=== PATIENT | male | born 1955 | race Caucasian/White ===

== ENCOUNTER → 2022-01-12 | Outpatient (CLI) | payer BC, SELFPAY ==
[2022-01-12 16:53] LABS: Absolute Lymphocyte Count 2.46 X10^3/uL (0.83-4.51); Absolute Neutrophil Count 3.2 X10^3/uL (2.0-7.7); Basophil# 0.07 X10^3/uL; Basophil% 1.1 % (0-1); Eosinophil# 0.17 X10^3/uL; Eosinophils% 2.6 % (0-5); Hemoglobin 14.6 g/dL (13.0-16.5); Lymphocyte # 2.46 X10^3/ul (0.83-4.51); Lymphocyte % 37.4 % (19-41); Mean Corp Hgb Conc 33.2 g/dL (32-36); Mean Corpuscular Hgb 30.8 pg (27.0-32.0); Mean Corpuscular Volume 92.8 fL (80-94); Mean Platelet Vol. 9.1 fl (6.2-12.0); Monocyte# 0.61 X10^3/uL; Monocyte% 9.3 % (0-10); NRBC Flagged by Analyzer 0 % (0-5); Neutrophil # 3.24 X10^3/uL (2.7-7.7); Neutrophil % 49.3 % (47-70); Platelet Count 296 K/mm3 (150-450); RBC Distribution Width CV 12.9 % (11.6-14.6); RBC Distribution Width SD 44.2 fl (35.1-43.9); Red Blood Count 4.74 M/mm3 (4.6-6.2); White Blood Count 6.6 K/mm3 (4.4-11.0)
[2022-01-12 17:39] LABS: Vitamin D,25 Hydroxy 43.2 ng/mL
[2022-01-12 17:49] LABS: ALB/GLOB Ratio 1.2 RATIO (0.9-2.4); AST(SGOT) 16 U/L (15-37); Alanine Aminotransfer ALT/SGPT 25 U/L (16-61); Albumin, Serum 4.1 g/dL (3.2-5.0); Alkaline Phosphatase 67 U/L (45-117); Anion Gap 4 (5-15); BUN 19 mg/dL (7-18); BUN/Creat Ratio 18.8 RATIO (10-20); Calcium,Total 8.7 mg/dL (8.5-10.1); Chloride 110 mmol/L (98-107); Cholesterol 185 mg/dL (200); Creatinine, Serum 1.01 mg/dL (0.70-1.30); EST Glomerular Filtration Rate 79 mL/min (>60); Est Glom Filt Rate - Afr Amer 95 mL/min (>60); Globulin 3.4 g/dL (2.2-4.2); Glucose 94 mg/dL (74-106); High Density Lipoprotein 67 mg/dL; PSA,Total - Annual Screen 1.83 ng/mL (0.00-4.00); Potassium 4.1 mmol/L (3.5-5.1); Protein, Total 7.5 g/dL (6.4-8.2); Sodium Level 140 mmol/L (136-145); Thyroid Stim Hormone (TSH) 8.16 uIU/mL (0.358-3.74); Triglycerides 49 mg/dL; Very Low Density Lipoprotein 10 mg/dL (5-40)
[2022-01-13 08:47] LABS: Free T3 2.7 pg/mL (2.18-3.98); T4 Free Direct 0.83 ng/dL (0.76-1.46)
== END | disposition home or self-care (01) ==
LOC: LAB 16:31
PROVIDERS: PCP Internal Medicine; Visit Provider Internal Medicine
DX: Z00.00 Encounter for general adult medical examination without abnormal findings (principal); Z13.220 Encounter for screening for lipoid disorders; Z12.5 Encounter for screening for malignant neoplasm of prostate; R79.89 Other specified abnormal findings of blood chemistry
CPT/HCPCS: 36415; 80053; 80061; 82306; 84153; 84439; 84443; 84481; 85025; G0103

== ENCOUNTER 2022-01-25 09:22 | Day surgery (SDC) | payer BC, SELFPAY ==
[2022-01-25 09:49] VITALS: BP 124/82; PULSE 68; RESP 16; TEMP 36.6; O2SAT 96; BMI 28.3
[2022-01-25] MEDS: Lactated Ringers 1,000 ML 15 ML IV (09:55)
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
--- NOTE | 2022-01-25 10:15 | COLBX_PTH ---
PATIENT: JACKSON BARTLETT LOC: [facility] U#:[id number] AGE/SX: 66/M ROOM: RE01/25/[address]: Dr. Prince Malik MD : 1955 BED: DIS: 01/25/2022 SPEC #: [id number] RECD: 01/25/22 11:30 STATUS: MEENU REYNAGA #: [id number] DREW: 01/25/22 10:[address]: Prince Malik DEPT: SURGICAL PATHOLOGY RECD BY: Sara Rangel ENTERED: 01/25/22 12:45 SP TYPE: COLON BX OTHR DR: Dr. Rhoda Marcano MD Tissues: A - Cecum, NOS B - COLON BIOPSY Procedures: Surgery Specimen Level IV HEADER OPERATION: Colonoscopy (MAC), biopsy PRE-OP DIAGNOSIS: Change in bowel movement, elevated TSH TISSUE SUBMITTED: A ? Cecal polyp biopsy, B ? Appendiceal orifice biopsy MICROSCOPIC DIAGNOSIS A. Cecal polyp, biopsy: Tubular adenoma. B. Appendiceal orifice, biopsy: No pathologic change. See comment. AM:jose 01/26/2022 COMMENT B. Prominent benign appearing lymphoid aggregates are present. MICROSCOPIC DESCRIPTION Slides are reviewed. GROSS DESCRIPTION A - Received in fixative is one container labeled with the patient's name and designated cecal polyp. The specimen consists of two irregular fragments of light lacey soft tissue that in aggregate measure 0.7 x 0.6 x 0.1 cm. The specimen is totally submitted in one cassette. B - Received in fixative is one container labeled with the patient's name and designated appendiceal orifice. The specimen consists of one irregular fragment of light lacey soft tissue that measures 0.5 x 0.3 x 0.1 cm. The specimen is totally submitted in one cassette. / AM:jose 01/25/2022 TC:5 CPT: 54552 x2
[2022-01-25 10:53] VITALS: BP 113/74; BP 124/82; PULSE 68; RESP 18; TEMP 36.2; O2SAT 98
--- NOTE | 2022-01-25 10:55 | OP.COLON_ITS ---
Patient Name: Xander Kelley Procedure Date: 01/25/2022 10:26 AM Date of : 1955 Age: 66 Procedure: Colonoscopy Indications: Constipation Providers: Prince Malik MD Medicines: See the Anesthesia note for documentation of the administered medications Patient Profile: Last Colonoscopy: none. The patient's first colonoscopy is today. Complications: No immediate complications. Procedure: Pre-Anesthesia Assessment: - Prior to the procedure, a History and Physical was performed, and patient medications and allergies were reviewed. The patient's tolerance of previous anesthesia was also reviewed. The risks and benefits of the procedure and the sedation options and risks were discussed with the patient. All questions were answered, and informed consent was obtained. Prior Anticoagulants: The patient has taken no previous anticoagulant or antiplatelet agents. ASA Grade Assessment: II - A patient with mild systemic disease. After reviewing the risks and benefits, the patient was deemed in satisfactory condition to undergo the procedure. After I obtained informed consent, the scope was passed under direct vision. Throughout the procedure, the patient's blood pressure, pulse, and oxygen saturations were monitored continuously. The pediatric colonoscope was introduced through the anus and advanced to the cecum, identified by appendiceal orifice and ileocecal valve. The colonoscopy was performed without difficulty. The patient tolerated the procedure well. The quality of the bowel preparation was good. The ileocecal valve and the appendiceal orifice were photographed. Scope In: 10:31:17 AM Scope Withdrawal Time 0 hours 11 minutes 8 seconds Scope Out: 10:48:51 AM Total Procedure Duration Time 0 hours 17 minutes 34 seconds Findings: The digital rectal exam findings include non-thrombosed external hemorrhoids, non-thrombosed internal hemorrhoids, internal hemorrhoids (Grade I) and enlarged prostate. A 6 mm polyp was found in the cecum. The polyp was sessile. The polyp was removed with a cold biopsy forceps. Resection and retrieval were complete. One submucosal nodule was found appendiceal orifice. Biopsies were taken with a cold forceps for histology. The exam was otherwise without abnormality. Impression: - Non-thrombosed external hemorrhoids, non-thrombosed internal hemorrhoids, internal hemorrhoids (Grade I) and enlarged prostate found on digital rectal exam. - One 6 mm polyp in the cecum, removed with a cold biopsy forceps. Resected and retrieved. - Submucosal nodule at the appendiceal orifice. Biopsied. - The examination was otherwise normal. Recommendation: - Discharge patient to home. - Resume previous diet. - Continue present medications. - Repeat colonoscopy in 5 years for surveillance based on pathology results. - Telephone my office for pathology results in 1 week. The orifice of the appendix is protruding into the lumen of the cecum. Photographs were obtained. I will recommend a abdominal pelvic CT scan with oral and IV contrast. Possible mucocele. Procedure Code(s): --- Professional --- 10343, Colonoscopy, flexible; with biopsy, single or multiple Diagnosis Code(s): --- Professional --- D12.0, Benign neoplasm of cecum K63.89, Other specified diseases of intestine K64.0, First degree hemorrhoids K64.4, Residual hemorrhoidal skin tags K59.00, Constipation, unspecified N40.0, Benign prostatic hyperplasia without lower urinary tract symptoms CPT copyright 2017 [employer]. All rights reserved. The codes documented in this report are preliminary and upon travel guide review may be revised to meet current compliance requirements. Prince Malik MD 01/25/2022 10:55:19 AM This report has been signed electronically. Number of Addenda: 0 Note Initiated On: 01/25/2022 10:26 AM
--- NOTE | 2022-01-25 10:56 | OP.CCLET_ITS ---
01/25/2022 Rhoda Marcano [facility] [address] [place] [address] Re : Colonoscopy procedure for Xander Kelley Dear Dr. Marcano This procedure was performed on Tuesday, January 25, 2022. My impressions and recommendations are as follows: Impressions : - Non-thrombosed external hemorrhoids, non-thrombosed internal hemorrhoids, internal hemorrhoids (Grade I) and enlarged prostate found on digital rectal exam. - One 6 mm polyp in the cecum, removed with a cold biopsy forceps. Resected and retrieved. - Submucosal nodule at the appendiceal orifice. Biopsied. - The examination was otherwise normal. Recommendations : - Discharge patient to home. - Resume previous diet. - Continue present medications. - Repeat colonoscopy in 5 years for surveillance based on pathology results. - Telephone my office for pathology results in 1 week. The orifice of the appendix is protruding into the lumen of the cecum. Photographs were obtained. I will recommend a abdominal pelvic CT scan with oral and IV contrast. Possible mucocele. My findings are described in the full procedure note, which is enclosed. If I can be of further assistance, please feel free to contact me at Doctor phone number(s): Work: . Sincerely, Prince Malik MD 01/25/2022 10:55:19 AM This report has been signed electronically.
[2022-01-25 10:58] VITALS: BP 111/76; BP 124/82; PULSE 70; RESP 16; O2SAT 94
[2022-01-25 11:03] VITALS: BP 110/80; BP 124/82; PULSE 59; RESP 16; O2SAT 98
[2022-01-25 11:08] VITALS: BP 114/76; BP 124/82; PULSE 58; RESP 16; TEMP 36.9; O2SAT 98
[2022-01-25 11:30] VITALS: BP 124/82
== END 2022-01-25 11:42 | disposition home or self-care (01) ==
LOC: EN 09:22 → AC 09:22
PROVIDERS: PCP Internal Medicine; Referring Provider Internal Medicine; Visit Provider Surgery
PROC: 0DJD8ZZ Inspection of Lower Intestinal Tract, Via Natural or Artificial Opening Endoscopic (ICD-10-PCS; CPT 45378; principal; 2022-01-25 10:10)
DX: D12.0 Benign neoplasm of cecum (principal); K64.0 First degree hemorrhoids; K64.4 Residual hemorrhoidal skin tags; N40.0 Benign prostatic hyperplasia without lower urinary tract symptoms; K63.89 Other specified diseases of intestine; Z87.891 Personal history of nicotine dependence
CPT/HCPCS: 45380; 88305; J7120; J2405

== ENCOUNTER → 2022-01-27 | Outpatient (CLI) | payer BC, SELFPAY ==
--- NOTE | 2022-01-27 18:52 | CT_ITS ---
We are attempting to reach an attending provider to discuss findings. An addendum with communication details will be sent when the communication is complete. INDICATION: Dilated appendix. Change in bowel habits. EXAMINATION: CT ABDOMEN AND PELVIS WITH CONTRAST - CT Abdomen And Pelvis W/ Contrast Injection TECHNIQUE: Helically acquired images were obtained of the abdomen and pelvis following IV contrast. A radiation dose optimization technique was used for this scan. IV Contrast dosage and agent: 100 mL of Isovue-300 Oral contrast: With COMPARISON: None. FINDINGS: LOWER CHEST: Lung bases are clear. No cardiomegaly or pericardial effusion. LIVER: Homogeneous. No focal mass. GALLBLADDER AND BILIARY TREE: No calcified gallstones. No gallbladder distension or wall edema. No intra- or extrahepatic biliary ductal dilation. PANCREAS: No focal cystic or solid mass. SPLEEN: Normal size without focal cystic or solid mass. ADRENAL GLANDS: No nodules. KIDNEYS AND URETERS: Normal right kidney. There is a 3.4 cm exophytic cyst lower pole of the left kidney with associated nonobstructing 5 mm calcification. Mild cortical thinning is seen in the posterior lower pole. Normal visualized ureters. PERITONEUM: No ascites or free air. No other fluid collection. BOWEL: The appendix is markedly distended without wall thickening. This measures approximately 1.9 cm in diameter. Appendix is filled with low density material There is no evidence of associated inflammatory change. No stomach or bowel distension. Colon appears grossly unremarkable. LYMPH NODES: No enlarged mesenteric or retroperitoneal lymph nodes. VESSELS: Aorta is non-dilated. URINARY BLADDER: Unremarkable. REPRODUCTIVE ORGANS: Normal prostate. ABDOMINAL WALL: No discrete abdominal or pelvic wall hernia. BONES: Degenerative changes lumbar spine. No lytic or blastic changes are found CT/Abdomen/Pelvis WITH Contrast IMPRESSION: 1. Distended fluid-filled appendix without wall thickening or inflammatory change. Question appendicitis. 2. No evidence of gastric enteric or colonic abnormality. 3. Nonobstructing left renal calculi with associated exophytic cysts. There is mild cortical loss lower pole of the left kidney. 4. Otherwise normal CT of the abdomen and pelvis. Electronically Signed: Sawyer Hollis DO at 19:16 EDT Reading Location ID and State: [id number] Tel [phone], Service support ,
== END | disposition home or self-care (01) ==
LOC: CT 18:48
PROVIDERS: PCP Internal Medicine; Visit Provider Physician Assistant
DX: R19.4 Change in bowel habit (principal); R10.31 Right lower quadrant pain
CPT/HCPCS: 74177; Q9967

== ENCOUNTER 2022-02-07 06:56 | Day surgery (SDC) | payer BC, SELFPAY ==
--- NOTE | 2022-02-03 16:12 | EKG12_ITS ---
Test Reason : PRE OP Blood Pressure : / mmHG Vent. Rate : 059 BPM Atrial Rate : 059 BPM P-R Int : 132 ms QRS Dur : 090 ms QT Int : 456 ms P-R-T Axes : 070 052 060 degrees QTc Int : 451 ms Sinus bradycardia Otherwise normal ECG Confirmed by TY CAPPS, VAISHNAVI ([id number]), multimedia editor PRATIBHA PARMAR ([id number]) on 02/08/2022 10:56:07 AM Referred By: Prince Malik Confirmed By:DONY CRAWFORD MD
[2022-02-03 16:46] LABS: Hematocrit 42.6 % (40-54); Hemoglobin 14.1 g/dL (13.0-16.5); Mean Corp Hgb Conc 33.1 g/dL (32-36); Mean Corpuscular Hgb 30.9 pg (27.0-32.0); Mean Corpuscular Volume 93.4 fL (80-94); Mean Platelet Vol. 9.1 fl (6.2-12.0); Platelet Count 283 K/mm3 (150-450); RBC Distribution Width CV 13.2 % (11.6-14.6); RBC Distribution Width SD 45.3 fl (35.1-43.9); Red Blood Count 4.56 M/mm3 (4.6-6.2); White Blood Count 6.8 K/mm3 (4.4-11.0)
[2022-02-03 17:15] LABS: Anion Gap 7 (5-15); BUN 19 mg/dL (7-18); Calcium,Total 8.6 mg/dL (8.5-10.1); Chloride 107 mmol/L (98-107); EST Glomerular Filtration Rate 80 mL/min (>60); Est Glom Filt Rate - Afr Amer 96 mL/min (>60); Glucose 91 mg/dL (74-106); Potassium 3.8 mmol/L (3.5-5.1); Sodium Level 142 mmol/L (136-145)
[2022-02-07] VITALS (7 sets, daily range): BP systolic 123–149; BP diastolic 77–89; PULSE 54–63; RESP 16–18; TEMP 36–36.8; O2SAT 95–100; BMI 29.8
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
--- NOTE | 2022-02-07 07:27 | DCINST_ITS ---
Discharge Instructions Procedure General Surgery Diet Discharge Diet: Light diet - advance as tolerated (if you have questions about your diet instructions, please talk to you doctor.) Activity Discharge Activity: May Not Drive (for 3-5 days or while taking narcotic pain medicine.) May shower in (days): 1 Lifting Restrictions: 10 pounds Dressing / Incision Call your doctor if your incision/area has: Continuous Slow Oozing, Sudden Increased Bleeding, Increased Pain/ Swelling, Increased Redness and Foul Smelling Discharge Call your doctor if you observe: Fever of 101 or Higher Suture Line Care: Avoid Pulling/Pushing and Avoid Pinching/Bending Additional Dressing/Incision Instructions:: Change or remove dressing in 4 days. Leave steri-strips in place for 1 week. Follow Up Care Please Follow Up With: Prince Malik MD When: Call [phone] to make an appointment to be seen in about 10 days. Test Results: Test results from this visit will be discussed in further detail at your follow- up appointment, if applicable. Discharge Plan Admission Attending Provider: Prince Malik Primary Care Provider: Rhoda Marcano Discharge Orders/Prescriptions Prescriptions: No Action NK Referrals / Follow Up: Rhoda Marcano MD [Primary Care Provider] - Disposition Disposition (needs filled in before D/C Order can be placed): Home, Self Care
[2022-02-07] MEDS: Lactated Ringers 1,000 ML 15 ML IV (08:00)
--- NOTE | 2022-02-07 09:00 | APP_PTH ---
PATIENT: JACKSON BARTLETT [place] [facility] [place][id number] AGE/SX: 66/M ROOM: RE02/07/[address]: Dr. Prince Malik MD : [id number] BED: DIS: 02/07/2022 SPEC #: [id number] RECD: 02/07/22 14:41 STATUS: MEENU REQ #: [id number] DREW: 02/07/22 09:[address]: Prince Malik DEPT: SURGICAL PATHOLOGY RECD BY: Sara Rangel ENTERED: 02/08/22 08:03 SP TYPE: APPENDIX OTHR DR: Dr. Rhoda Marcano MD Tissues: Appendix, NOS Procedures: Surgery Specimen Level III HEADER OPERATION: Laparoscopic, appendectomy PRE-OP DIAGNOSIS: Mucocele of appendix TISSUE SUBMITTED: Appendix MICROSCOPIC DIAGNOSIS Appendix, appendectomy: Mucinous cystadenoma. /SJ 02/09/22 MICROSCOPIC DESCRIPTION Slides are reviewed. GROSS DESCRIPTION Received in fixative is one container labeled with the patient's name and designated appendix. The specimen consists of a distended appendix measuring 6.5 cm in length and up to 2.5 cm in diameter. The attached periappendiceal adipose tissue measures up to 1 cm in width. Proximal resection margin is stapled. Serosal surface is smooth and inked black. No obvious perforation is identified. The lumen is filled with mucoid material. Appendicular wall measures 0.1 to 0.2 cm in thickness. No lymph nodes are identified in periappendiceal adipose tissue. Coding Support Specialist sections are submitted in 7 cassettes as follows: 1 ? proximal resection margin, 2 & 3 ? appendix tip, 4 to 6 off premise service representative sections from middle portion of appendix, 7 periappendiceal adipose tissue. /SJ:cc 02/08/2022 TC:1 CPT: 27722
[2022-02-07] MEDS: Cefotetan 2 GM in 0.9% NS 100 ML IV (09:07)
[2022-02-07] MEDS: Bupivacaine 0.25% 30 ML Vial (09:53)
--- NOTE | 2022-02-07 09:56 | PCM.OPRPT ---
Problems Associated Problem List Diagnoses (1) Mucocele of appendix: Report of Operation Date of Procedure: 02/07/22 Pre-Operative Diagnosis: Appendix mucocele Post-Operative Diagnosis: Same Surgery/Procedure Performed:: Laparoscopic appendectomy Description of Surgical Findings:: Timeout informed consent was obtained. 66-year-old gentleman was taken to the operating placed on the table underwent general endotracheal intubation esthesia. Cefotetan 2 g were given intravenously. The abdomen was sterilely prepped and draped. 0.25% Marcaine was used as a local anesthetic. Skin sites were pretty anesthetized. A vertical infraumbilical incision was created holding sutures of 0 Vicryl placed varies needle inserted saline drop test performed. The abdomen was insufflated with CO2 to a pressure of 10 mmHg pressure. 10 mm trocar inserted. 10 mm laparoscope inserted. No evidence of any trocar injuries. Under visualization a 5 mm port was placed suprapubically. A grossly distended urinary bladder was identified and care was taken to avoid this. A 5 mm trocar was placed in the right mid abdomen. The appendix was generally distended. A window was made in the mesoappendix flush with the cecum. A 45 mm stapler was inserted and I did a very limited seek ectomy. This required 2 firings of the standard load. Then secured the mesoappendix with a vascular stapler. Pressure was held with gauze for hemostasis. Hemostasis was intact. The appendix had been immediately placed in a retrieval bag. Having assured hemostasis the abdomen was allowed to deflate through an antiviral valve. Trochars were removed. The appendix was removed through the umbilical site. The fascia at the umbilical site was closed with a [id number]-[id number]-[id number] suture of 0 Vicryl. Skin edges approximated opted for Monocryl subdermal stitches. Steri-Strips Telfa OpSite dressings applied. Sponge and instrument and needle counts were reported to the surgeon to be correct. Specimen appendix. Drains none. Blood loss minimal. The patient was taken to the recovery room in satisfactory due to the operative complications Prince Malik M.D., F.A.C.S. Surgeon: Prince Malik Type of Anesthesia: General and Local Anesthesiologist: Telma Magaña
[2022-02-07] MEDS: HYDROcodone Bitartrate/Apap 5/325 Tablet PO (12:08)
--- NOTE | 2022-02-07 12:15 | SUR.PHASEII ---
given discharge order per dr. andrade.
== END 2022-02-07 13:04 | disposition home or self-care (01) ==
LOC: SDC 06:57 → AC 06:58
PROVIDERS: PCP Internal Medicine; Referring Provider Surgery; Visit Provider Surgery
PROC: 0DTJ4ZZ Resection of Appendix, Percutaneous Endoscopic Approach (ICD-10-PCS; CPT 44970; principal; 2022-02-07 08:40)
DX: D12.1 Benign neoplasm of appendix (principal); Z87.891 Personal history of nicotine dependence
CPT/HCPCS: 44970; 00840; 36415; 80048; 85027; 88304; 93005; J7120; J2405

== ENCOUNTER → 2022-04-04 | Outpatient (CLI) | payer BC, SELFPAY ==
[2022-04-04 17:40] LABS: Free T3 2.5 pg/mL (2.18-3.98)
== END | disposition home or self-care (01) ==
PROVIDERS: PCP Internal Medicine; Visit Provider Internal Medicine
DX: R79.89 Other specified abnormal findings of blood chemistry (principal)
CPT/HCPCS: 36415; 84439; 84443; 84481

== ENCOUNTER 2022-05-09 17:30 | Outpatient (RCR) | payer BC, SELFPAY ==
--- NOTE | 2022-04-11 18:10 | HP.PTEVAL ---
Patient's Visit Information JACKSON BARTLETT is a 66 year old M referred to Physical Therapy by Dr. Rhoda Marcano MD with a diagnosis of L shoulder pain. Date of Evaluation: 04/11/22 Physical Therapist: Chito Moise, PT, ATC - Visit Plan Frequency: 2x /Week Duration: 3-6 weeks Plan: L shoulder strengthening (rot cuff), scap stab ex's, UBE, and HEP. C-Tx trial next Rx - Subjective Pt reports his L shoulder has been sorer for approximately one year. Pt reports his pain had an insidious onset in nature. Pt notes his pain has progressively worsened over this time span. Pt notes he knows he has a rotator cuff problem at this time, but he is hoping that PT will help to fix this issue. Pt notes he is R hand dominant. Pt reports he has pain intermittently in his L neck that will radiate down to his lateral humerus. 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 Pt reports he has a lot of difficulty with reaching over head. Pt also notes a lot of difficulty with trying to dry himself off in the shower. Pt notes he doesn't really hurt in his L shoulder, it just aches. 4/10 pain while sitting here at rest. 7/10 pain while at worst. Pt reports sleep difficulty seco ndary to pain - Pain L shoulder Pain Intensity (Out of 10): 4 Pain Intensity Range: 7 - Objective Neuro: B UE sensation is WNL to light touch. B bicipital reflex= 2/3. Palpation: Pt is sore along the supraspinatus muscle group and along the LHB tendon. ROM: R shoulder flex= 160, abd= 155, ER= 0, IR= WNL; L shoudler flex= 145, abd= 155, ER= 0, IR= WFL. MMT: R shoulder flex= 29, abd= 30, ER= 23, IR= 25; L shoudler flex= 6, abd= 15, ER= 10, IR= 24 #F. Special tests: No positive tests on todays date. Extreme weakness with open can. Pos apley compression and distraction test. Neck ROM: Pt is moderately limnited with retraction and ext ROM. Minimally limited with B SB. Repeated movements:NE - Balance/Special Test Scores Quick DASH Score: 36.3625 - Goals Goal 1:: Decrease L UE pain x 50% to aide with sleep Goal Time Frame: 2-4 Weeks Goal 2:: Increase L UE strength x 5-10 #F to aid with IADL's Goal Time Frame: 2-4 Weeks Goal 3:: Increase L shoulder ROM flex and abd ROM x 10-15 degrees to aid with overhead reaching Goal Time Frame: 2-4 Weeks Goal 4:: I with HEP Goal Time Frame: 2-4 Weeks - Rehabilitation Potential Physical Therapy Diagnosis: Pt has L UE weakness, limited L UE ROM, and L UE pain secondary to L rotator cuff instability Rehabilitation Potential: Good - Anticipated Interventions Patient/Client Instruction: Educate patient on: Condition, Plan of Care For the Purpose of:: To improve self management Therapeutic Exercise to Include: Strength training, Endurance training, Postural training, Flexibilty training, Active ROM, Scapular Strength/Stabilization For the Purpose of:: To decrease pain, To increase ROM, To improve muscle performance and motor function Intermittent cervical traction: Yes For the Purpose of:: To decrease pain, To increase ROM, To improve muscle performance and motor function Thank you for the opportunity to evaluate your patient. For Medicare and Medicare HMO plans, please review the plan of care and approve it. It will need to be FAXED BACK to us at [phone] for Medicare purposes. For Medicare only, by signing this I certify the plan of care. Please let me know if there are questions or concerns regarding this plan of care. Physician Signature: Date:
--- NOTE | 2022-05-09 17:48 | HP.PTDCSUM ---
It has been my pleasure to treat JACKSON BARTLETT referred by Dr. Rhoda Marcano MD, with the diagnosis of L shoulder pain for a total of 7 visit(s). Discharge Date: Please see the following information for a summary of their discharge status. Subjective: Pt reports he is really not any better overall L shoulder Pain Intensity (Out of 10): 3 % Improvement: 0 Objective/Function: L UE pain stays consistently at 3/10. L shoulder ROM: flex= 157, abd= 135 degrees. L UE MMT: flex= 5, abd= 17, ER= 9, IR= 26 #F. Pt has made no significant improvements at this time Goal 1:: Decrease L UE pain x 50% to aide with sleep Goal Progress: Not Progressing Goal 2:: Increase L UE strength x 5-10 #F to aid with IADL's Goal Progress: Not Progressing Goal 3:: Increase L shoulder ROM flex and abd ROM x 10-15 degrees to aid with overhead reaching Goal Progress: Goal Met Goal 4:: I with HEP Goal Progress: Goal Met Plan: Discontinue, RTD for possible further Dx testing If there are questions or concerns regarding this patient's physical therapy, please feel free to call me at [phone]. Thank you for the referral of this patient. Sincerely, Chito Moise, PT, ATC Balance/Gait/Functional tests - Balance/Special Test Scores Quick DASH Score: 54.5450
== END 2022-05-09 19:00 | disposition home or self-care (01) ==
LOC: PT 17:30
PROVIDERS: PCP Internal Medicine; Referring Provider Internal Medicine; Visit Provider Internal Medicine
DX: M67.919 Unspecified disorder of synovium and tendon, unspecified shoulder (principal)
CPT/HCPCS: 97012; 97110; 97161; 97164

== ENCOUNTER → 2022-05-10 | Outpatient (CLI) | payer BC, SELFPAY ==
[2022-05-10 17:32] LABS: Free T3 2.5 pg/mL (2.18-3.98); T4 Free Direct 0.83 ng/dL (0.76-1.46); Thyroid Stim Hormone (TSH) 8.05 uIU/mL (0.358-3.74)
== END | disposition home or self-care (01) ==
LOC: LAB 16:36
PROVIDERS: PCP Internal Medicine; Visit Provider Internal Medicine
DX: E03.9 Hypothyroidism, unspecified (principal)
CPT/HCPCS: 36415; 84439; 84443; 84481

== ENCOUNTER → 2022-06-08 | Outpatient (CLI) | payer BC, SELFPAY ==
[2022-06-08 17:25] LABS: Free T3 2.4 pg/mL (2.18-3.98); T4 Free Direct 0.82 ng/dL (0.76-1.46); Thyroid Stim Hormone (TSH) 7.38 uIU/mL (0.358-3.74)
== END | disposition home or self-care (01) ==
LOC: LAB 16:24
PROVIDERS: PCP Internal Medicine; Referring Provider Internal Medicine; Visit Provider Internal Medicine
DX: E03.9 Hypothyroidism, unspecified (principal)
CPT/HCPCS: 36415; 84439; 84443; 84481

== ENCOUNTER → 2022-08-13 | Outpatient (CLI) | payer BC, SELFPAY ==
--- NOTE | 2022-08-13 07:18 | MRI_ITS ---
INDICATION: rule in cuff tear EXAMINATION: MRI - LEFT MR Shoulder W/O Contrast TECHNIQUE: Multiplanar and multisequence MR images of the left shoulder without contrast. IV Contrast Dosage and Agent: None. COMPARISON: August 02, 2022 shoulder radiograph. FINDINGS: BONE: No fracture or abnormal bone marrow signal. ACROMIOCLAVICULAR JOINT: Normal alignment. Moderate degenerative osteophyte formation with trace joint effusion. No significant lateral tilt. Coracoclavicular ligaments are intact.. SUBACROMIAL-SUBDELTOID SPACE: Trace bursal fluid. GLENOHUMERAL JOINT: Normal alignment. No effusion. Preserved chondral surfaces. . ROTATOR CUFF: Focal insertional footplate tear across 6 mm of the anterior infraspinatus tendon at the junction with supraspinatus with approximately 9 mm interstitial extension along the tendon. Also mild bursal surface fraying There is no cuff muscle atrophy. LABRUM: Intact with degenerative change along the anterior-inferior contrast. Limited evaluation on non-arthrographic exam.. BICEPS TENDON: The extra-articular biceps tendon is in the bicipital groove. The intra-articular biceps tendon is normal. OTHER SOFT TISSUES: Unremarkable. MRI/Upper Ext Joint Only(Routine) IMPRESSION: 6 mm anterior infraspinatus tendon insertional tear along the footplate at the junction with the supraspinatus tendon. There is associated bursal surface fraying and subacromial subdeltoid bursitis. Moderate acromioclavicular osteoarthritis Electronically Signed: Alexi Burris MD at 4:30 EDT ,
== END | disposition home or self-care (01) ==
LOC: MRI 09:00
PROVIDERS: PCP Internal Medicine; Referring Provider Orthopaedic Surgery Sports Medicine; Visit Provider Orthopaedic Surgery Sports Medicine
DX: M75.102 Unspecified rotator cuff tear or rupture of left shoulder, not specified as traumatic (principal); M25.512 Pain in left shoulder
CPT/HCPCS: 73221

== ENCOUNTER → 2022-09-08 | Outpatient (CLI) | payer BC, SELFPAY ==
[2022-09-08 17:33] LABS: Free T3 2.6 pg/mL (2.18-3.98); T4 Free Direct 0.89 ng/dL (0.76-1.46); Thyroid Stim Hormone (TSH) 8.25 uIU/mL (0.358-3.74)
== END | disposition home or self-care (01) ==
LOC: LAB 16:08
PROVIDERS: PCP Internal Medicine; Referring Provider Internal Medicine; Visit Provider Internal Medicine
DX: E03.9 Hypothyroidism, unspecified (principal)
CPT/HCPCS: 36415; 84439; 84443; 84481

== ENCOUNTER 2022-11-30 05:56 | Day surgery (SDC) | payer BC, SELFPAY ==
--- NOTE | 2022-11-29 12:31 | EKG12_ITS ---
Test Reason : PREOP Blood Pressure : / mmHG Vent. Rate : 071 BPM Atrial Rate : 071 BPM P-R Int : 134 ms QRS Dur : 076 ms QT Int : 428 ms P-R-T Axes : 068 054 068 degrees QTc Int : 465 ms Normal sinus rhythm Normal ECG Confirmed by ZOE CAPPS, ALIZA ([id number]), editor managing director STACY BUCIO ([id number]) on 12/02/2022 11:41:53 AM Referred By: Xander Toth Confirmed By:ALIZA ENRIQUEZ MD
[2022-11-29 13:09] LABS: Hematocrit 42.5 % (40-54); Hemoglobin 14.1 g/dL (13.0-16.5); Mean Corp Hgb Conc 33.2 g/dL (32-36); Mean Corpuscular Hgb 31.1 pg (27.0-32.0); Mean Corpuscular Volume 93.8 fL (80-94); Mean Platelet Vol. 8.7 fl (6.2-12.0); Platelet Count 285 K/mm3 (150-450); RBC Distribution Width CV 13.4 % (11.6-14.6); RBC Distribution Width SD 45.9 fl (35.1-43.9); Red Blood Count 4.53 M/mm3 (4.6-6.2); White Blood Count 6.4 K/mm3 (4.4-11.0)
[2022-11-29 13:51] LABS: Anion Gap 4 (5-15); BUN 20 mg/dL (7-18); Calcium,Total 8.6 mg/dL (8.5-10.1); Chloride 110 mmol/L (98-107); Creatinine, Serum 0.95 mg/dL (0.70-1.30); EST Glomerular Filtration Rate 84 mL/min (>60); Est Glom Filt Rate - Afr Amer 102 mL/min (>60); Glucose 94 mg/dL (74-106); Potassium 4.1 mmol/L (3.5-5.1); Sodium Level 141 mmol/L (136-145); Thyroid Stim Hormone (TSH) 2.84 uIU/mL (0.358-3.74)
[2022-11-29 13:55] LABS: Free T3 2.5 pg/mL (2.18-3.98); T4 Free Direct 0.86 ng/dL (0.76-1.46)
[2022-11-30] VITALS (7 sets, daily range): BP systolic 116–135; BP diastolic 76–88; PULSE 61–70; RESP 16; TEMP 36.3–36.8; O2SAT 91–97; BMI 30.4
[2022-11-30] MEDS: Lactated Ringers 1,000 ML 15 ML IV (06:36)
--- NOTE | 2022-11-30 06:59 | HP.PCM_ITS ---
HPI - General HPI Narrative XANDER BARTLETT, is a 67 M who presents left shoulder arthroscopy subacromial decompression and rotator cuff repair. No changes to h and P. RAB and narcotic counselling. ok to proceed. Left shoulder marked. Plan for block. MR#: [id number] Acct: [id number] Name: XANDER BARTLETT Rep #: [id number] : 1955 Provider: Dr. Xander Toth MD Age/Sex: 67/M Location: [facility] – [place] Status: Signed Intake Vital Signs 02/07/2207:48 Height 5 ft 7 in Intake Visit Reasons: LEFT SHOULDER Chief Complaint: left shoulder Accompanied by: Self Is patient in pain?: Yes Pain scale (1-10): 3 Allergies Sulfa (Sulfonamide Antibiotics) Allergy (Verified 08/01/22 15:31) Unknown Medications levothyroxine 25 mcg tablet 25 mcg PO DAILY #90 tabs 06/09/22 [Rx Confirmed 0 09/08/22] PFSH Medical History Absence of tonsil Alcohol use Back pain Former smoker Heartburn Hernia Left rotator cuff tear Left shoulder pain Right shoulder pain Wears glasses Surgical History H/O knee surgery History of appendectomy Hx of colonoscopy Hx of hernia repair Hx of tonsillectomy Family History Mother History of quadruple bypass Uterine cancer Heart diseaseFather Heart disease Cancer neck Social History adopted: No household members: spouse housing: house current occupational status: employed current occupation: [employer] history of recent travel: No sexually active: Yes Smoking Status: Former smoker how long ago did patient quit smokin yrs ago alcohol intake: current alcohol intake frequency: holidays/special occasions only details: socially substance use type: does not use well-balanced diet: daily or most days caffeine: Yes eating out: 1-3 times/week during the past year weight has: remained stable what type of physical activity do you participate in: walking damien/holiness: Protestant seatbelt use: always do you feel safe at home: Yes HPI LEFT SHOULDER Details: Parts of this documentation were recorded by a scribe, this documentation accurately reflects the service provided and the decisions made by me, Dr. Xander Toth MD 09/08/22 [id number]. XANDER BARTLETT is a 67 year old M here today for FU left shoulder pain, interested in proceeding with surgery. Ortho Exam General General: Yes no acute distress Neurologic: Yes alert and Yes oriented x3 Psychologic: Yes reasonable and appropriate Left Shoulder Skin/Wound: Yes CDI, No ecchymosis, No erythema and No swelling Testing: No Hawkin's, Yes Neer's, No Speed's, Yes TTP Biceps, No TTP AC Joint, No Drop Arm, Yes AROM-Forward Elevation 0-180, Yes PROM-External Rotation at side 0-60, No Apprehension Test, No Sulcus Sign, Yes empty can, No cross arm, No lift off and Yes IR @ 90 0-70 SHOULDER: has full motion but strength in forward elevation is 4+/5 in strength in external rotation is 4+/5. Supplemental Info [facility] Imaging Services [address] [place] [id number] Upper Ext? Joint Only(Routine) MR#:? [id number] Acct: [id number] Name:? XANDER BARTLETT Rep #: [id number] :?? 1955 M 66 ? From:? ? Alexi Burris MD PCP: Dr. Rhoda Marcano MD ? Status: REG CLI Study: Upper Ext? Joint Only(Routine) ? Date of Exam: 08/13/22 Exam# [id number] ? Ordering Dr:? Xander Toth MD INDICATION: rule in cuff tear EXAMINATION: MRI - LEFT MR Shoulder W/O Contrast TECHNIQUE: Multiplanar and multisequence MR images of the left shoulder without contrast. IV Contrast Dosage and Agent: None. COMPARISON: August 02, 2022 shoulder radiograph. FINDINGS: BONE: No fracture or abnormal bone marrow signal. ACROMIOCLAVICULAR JOINT: Normal alignment. Moderate degenerative osteophyte formation with trace joint effusion. No significant lateral tilt. Coracoclavicular ligaments are intact.. SUBACROMIAL-SUBDELTOID SPACE: Trace bursal fluid. GLENOHUMERAL JOINT: Normal alignment. No effusion. Preserved chondral surfaces. . ROTATOR CUFF: Focal insertional footplate tear across 6 mm of the anterior infraspinatus tendon at the junction with supraspinatus with approximately 9 mm interstitial extension along the tendon. Also mild bursal surface fraying? There is no cuff muscle atrophy. LABRUM: Intact with degenerative change along the anterior-inferior contrast. Limited evaluation on non-arthrographic exam.. BICEPS TENDON: The extra-articular biceps tendon is in the bicipital groove. The intra-articular biceps tendon is normal. OTHER SOFT TISSUES: Unremarkable. MRI/Upper Ext? Joint Only(Routine) IMPRESSION: ? 6 mm anterior infraspinatus tendon insertional tear along the footplate at the junction with the supraspinatus tendon. There is associated bursal surface fraying and subacromial subdeltoid bursitis. ? Moderate acromioclavicular osteoarthritis ? Electronically Signed: Alexi Burris MD at 4:30 EDT Reading Location ID and State: [facility] / [place] Tel , Service support? , Coding Level of Care Code Off vis,est,level 3 Diagnoses Left rotator cuff tear M75.102 Left shoulder pain M25.512 Assessment and Plan Assessment and Plan (1) Left rotator cuff tear: Status: Acute Plan: 67M left shoulder RC tear, small and AC joint arthrosis.? Most of the pain likely from the RC tear. Patient wishes to go ahead with surgery very likely in November after his cruise. Surgical option which is left shoulder arthroscopy subacromial decompression and rotator cuff repair. We signed consent for surgery and possible blood products, no need for clearance healthy invidividual. Pros and cons risks and benefits were discussed with the patient including but not limited to infection, pain, stiffness, bleeding, damage to surrounding structures, neurovascular injury, recurrence or retear, failure or wear of hardware or fixation, instability, fracture, deep vein thrombosis and pulmonary embolism, anesthetic risks, , patient dissatisfaction, need for further surgery and other risks. Patient understood and wished to proceed with surgery, and signed the informed consent documentation. (2) Left shoulder pain: Status: Acute [facility] Medical History (Updated 11/22/22 @ 10:01 by Georgina Ball) Alcohol use Back pain Former smoker Heartburn History of irregular heartbeat Left rotator cuff tear Left shoulder pain Restless legs Right shoulder pain Thyroid disease Wears glasses Home Medications levothyroxine 50 mcg tablet 50 mcg PO DAILY #90 tabs 09/09/22 [Rx Last Taken 11/30/22] Allergy/AdvReac Type Severity Reaction Status Date / Time Sulfa (Sulfonamide Allergy Unknown Verified 11/30/22 06:36 Antibiotics) Family History Mother History of quadruple bypass Uterine cancer Heart disease Father Heart disease Cancer neck Surgical History (Updated 11/22/22 @ 09:55 by Georgina Ball) H/O knee surgery History of appendectomy Hx of colonoscopy Hx of hernia repair Hx of tonsillectomy Social History adopted: No household members: spouse housing: house current occupational status: employed current occupation: [employer] history of recent travel: No sexually active: Yes Smoking Status: Former smoker how long ago did patient quit smokin yrs ago alcohol intake: current alcohol intake frequency: holidays/special occasions only details: socially substance use type: does not use well-balanced diet: daily or most days caffeine: Yes eating out: 1-3 times/week during the past year weight has: remained stable what type of physical activity do you participate in: walking damien/holiness: Protestant seatbelt use: always do you feel safe at home: Yes Vital Signs Vital Signs Vital Signs: 11/30/22 06:37 11/30/22 06:37 Temperature 98.2 F Temperature Source Temporal Pulse Rate 69 Respiratory Rate 16 Respiratory Pattern Normal Blood Pressure 135/81 H Blood Pressure Mean 99 Blood Pressure Source Monitor Blood Pressure Position Semi-Fowlers Blood Pressure Location Left Arm Pulse Ox 97 Oxygen Delivery Method Room Air Weight Weight: 194 lb 0.108 oz Body Mass Index (BMI) 30.4 Results Lab / Micro Data 11/29/22 12:57 11/29/22 12:57 Labs: Laboratory Results - last 24 hr 11/29/22 12:57: WBC 6.4, RBC 4.53 L, Hgb 14.1, Hct 42.5, MCV 93.8, MCH 31.1, MCHC 33.2, RDW Std Deviation 45.9 H, RDW Coeff of Darby 13.4, Plt Count 285, MPV 8.7, Sodium 141, Potassium 4.1, Chloride 110 H, Carbon Dioxide 27.0, Anion Gap 4 L, BUN 20 H, Creatinine 0.95, Est GFR (MDRD) Af Amer 102, Est GFR (MDRD) Non-Af 84, BUN/Creatinine Ratio 21.0 H, Glucose 94, Calcium 8.6, TSH 2.84, Free T4 0.86, Free T3 pg/dL 2.5
[2022-11-30] MEDS: Epinephrine (1 mg/ml) 1 MG/ML VIAL ×2 (07:06→08:29)
[2022-11-30] MEDS: Cefazolin 2 GM in 0.9% Normal Saline 100 ML IV (07:45)
--- NOTE | 2022-11-30 09:05 | PCM.OPRPT ---
Problems Associated Problem List Diagnoses (1) Left rotator cuff tear: Report of Operation Date of Procedure: 11/30/22 Pre-Operative Diagnosis: Left shoulder rotator cuff tear Post-Operative Diagnosis: Same Surgery/Procedure Performed:: Left shoulder arthroscopy subacromial decompression rotator cuff repair Surgeon: Xander Toth Type of Anesthesia: Block,Regional and General Anesthesiologist: Chao Camejo Estimated Blood Loss (mL): 30 Description of Procedure: Patient brought to the operating room theater. Placed supine on the table. General anesthesia induced. Patient transferred left side up lateral decubitus beanbag positioner axillary roll used. All bony prominences padded. SCDs on the legs. 2 g IV Ancef administered prior to the start of the case. Upper extremity prepped and draped in the usual sterile fashion with chlorhexidine-based prep solution lying over 3 minutes drying time prior to draping. 10 pounds of inline traction of the arm and 45 degrees of abduction was used. Preoperative timeout performed to confirm the site patient and the surgery. Began by using a standard posterior arthroscopy portal inserted the arthroscope into the intra-articular portion of the shoulder. Used inside-out spinal needle localization to create an anterior portal through the rotator interval just posterior to the biceps tendon. And did a full diagnostic arthroscopy. Minor grade 1 fraying on the glenoid and humeral head. Minor upper border fraying subscapularis. Supraspinatus appeared normal however at the junction of the supraspinatus and infraspinatus fitting with the MRI there was partial-thickness tearing at that location. This was marked with a spinal needle. There is some minor labral fraying that I gently debrided. Rest of the rotator cuff appeared normal. No biceps synovitis. Biceps root appeared stable some minor fraying of the superior labrum again gently debrided. I then inserted this arthroscope into the subacromial space. I did a complete bursectomy. I did a subacromial decompression at the anterolateral aspect of the acromion using the rema instrument to flat margins. Identified the site of the previously marked tear using a spinal needle. I used the Arthrex power pick instrument to create multiple trephination's to stimulate for healing. I used the probe no other tears were noted. Due to the partial-thickness nature of the tear I decided to use the trans tendon past repair technique. 2 plastic canulas, 7x7 placed laterally. Placed self punching Arthrex knotless 2.6 mm fiber tack anchors anterior and posterior to the tear. I then passed the repair suture from each anchor through the loop suture and then pulled the delivering suture to create a horizontal mattress stitch using 2 sutures. I then used the free ends laterally and secured this with a Arthrex bio Composite knotless swivel lock anchor 4.75 mm. I cut the suture short. Final arthroscopy pictures were taken on this and saved in the system. This created a triangular suture configuration to repair the tear. Stable repair. Arthroscopic pictures taken and saved throughout the case. Wounds thoroughly irrigated. Portal and cannula sites closed with 3-0 Monocryl sutures. Steri-Strips followed by Adaptic 4 x 4 gauze ABD dressings with cloth tape and a sling for the upper extremity is in place. Patient woken up from the general anesthetic transferred off the operating table taken postanesthetic care unit in stable condition. Sponge needle instrument counts were correct no complications. cpt 35432 Complications none Admit VTE Documentation VTE Present on Admission: No VTE Mechan Device Prophylaxis: SCD's VTE Pharm Prophylaxis ordered?: No Reason prophylaxis not ordered:: Treatment Not Indicated Procedures Musculoskeletal 20xxx-29xxx: Other Procedure See Report
--- NOTE | 2022-11-30 09:13 | DCINST_ITS ---
Discharge Instructions Diet Discharge Diet: No restrictions Activity Ice area for (Minutes): 10 Lifting Restrictions: pendulums ok, hand wrist elbow ROM four times a day Dressing / Incision Call your doctor if your incision/area has: Continuous Slow Oozing, Sudden Increased Bleeding, Increased Pain/ Swelling, Increased Redness, Foul Smelling Discharge and Swelling at the incision site Cleanse incision/area with: Do not get Incision Wet Follow Up Care Please Follow Up With: Xander Toth MD When: 2 days Test Results: Test results from this visit will be discussed in further detail at your follow- up appointment, if applicable. Discharge Plan Admission Attending Provider: Xander Toth Primary Care Provider: Rhoda Marcano Instructions Patient Instructions: After Shoulder Arthroscopy Discharge Orders/Prescriptions Prescriptions: New oxycodone-acetaminophen [Endocet] 5-325 mg tablet 1 tab PO Q4H MDD 6 PRN (Reason: pain) 5 Days Qty: 30 0RF No Action levothyroxine 50 mcg tablet 50 mcg PO DAILY Qty: 90 3RF Referrals / Follow Up: Rhoda Marcano MD [Primary Care Provider] - Xander Toth MD [Med Staff - Active Staff] - Disposition Disposition (needs filled in before D/C Order can be placed): Home, Self Care
== END 2022-11-30 11:33 | disposition home or self-care (01) ==
LOC: SDC 05:58 → AC 05:59
PROVIDERS: Anesthesiology; PCP Internal Medicine; Referring Provider Orthopaedic Surgery Sports Medicine; Visit Provider Orthopaedic Surgery Sports Medicine
PROC: (CPT 29805; principal; 2022-11-30 07:10)
DX: M75.102 Unspecified rotator cuff tear or rupture of left shoulder, not specified as traumatic (principal); E03.9 Hypothyroidism, unspecified; Z79.890 Hormone replacement therapy; Z79.899 Other long term (current) drug therapy; Z87.891 Personal history of nicotine dependence
CPT/HCPCS: 29827; 29826; 64415; 01630; 36415; 80048; 84439; 84443; 84481; 85027; 93005; J7120; J2405

== ENCOUNTER → 2022-12-09 | Outpatient (CLI) | payer BC, SELFPAY | END | disposition home or self-care (01) | LOC: LAB 11:54 | PROVIDERS: PCP Internal Medicine; Referring Provider Internal Medicine; Visit Provider Internal Medicine | DX: Z00.00 Encounter for general adult medical examination without abnormal findings (principal) ==

== ENCOUNTER → 2023-03-14 | Outpatient (CLI) | payer BC, SELFPAY ==
--- NOTE | 2023-03-14 14:35 | NEURO ---
NCS and/or EMG Patient Report Ordering Doctor: Xander Toth DATE OF SERVICE: 03/14/23 Clinical Summary: This is a 67 year old male presenting with symptoms of numbness, tingling, and pain that radiates from the neck down into the left upper extremity. This EMG/NCS was performed to evaluate for left cervical radiculopathy. Nerve Conduction Studies Summary: The left median-D2 SNAP distal latency was prolonged with reduced amplitude. The left ulnar-D5 SNAP amplitude was reduced. The left median-APB CMAP distal latency was prolonged. The left ulnar motor conduction velocity dropped across the elbow greater than 10 m/s. Needle Examination Summary: Needle examination demonstrated increased insertional activity and spontaneous activity (positive sharp waves and fibrillation potentials) in the left deltoid and biceps muscles. There was a higher proportion of motor unit action potentials with reduced recruitment, increased amplitude, increased duration, and polyphasia in the left deltoid, biceps, triceps, flexor carpi radialis, flexor carpi ulnaris, extensor carpi ulnaris, and first dorsal interosseous muscles. 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
== END | disposition home or self-care (01) ==
LOC: PSN 13:39
PROVIDERS: PCP Internal Medicine; Referring Provider Orthopaedic Surgery Sports Medicine; Visit Provider Orthopaedic Surgery Sports Medicine
DX: M67.919 Unspecified disorder of synovium and tendon, unspecified shoulder (principal); M75.102 Unspecified rotator cuff tear or rupture of left shoulder, not specified as traumatic
CPT/HCPCS: 95886; 95910

== ENCOUNTER 2023-03-21 15:30 | Outpatient (RCR) | payer BC, SELFPAY ==
--- NOTE | 2022-12-15 18:03 | HP.PTEVAL ---
Patient's Visit Information Visit Information Visit Information: XANDER BARTLETT is a 67 year old M referred to Physical Therapy by Dr. Xander Toth MD with a diagnosis of L rot cuff repair 11/30/22. Date of Evaluation: 12/15/22 Physical Therapist: Chito Moise, PT, ATC Visit Plan Frequency: 2-3x /Week Duration: 4-6 Weeks Plan: L shoulder A/PROM for 4 weeks, and then progress to strengthening when tolerated. Subjective Subjective: Pt. reports s/p L shoulder RTC surgery on 11/30/2022. P! noted as about as same as it was before surgery which is eggagerated by certain movements. P! is located on the lateral side of the L arm. Reports not having mobility and wanting primarily to gain ROM and strength back. Notes that he should have had surgery 1 year ago but didn't, so L arm is very atrophied. P! is not keeping him from falling asleep or waking up. Today is the first day the pt. is able to not wear his sling. 3-10. 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 Pain Left Shoulder: Pain Intensity (Out of 10): 3 Pain Intensity Range: 3 Objective Objective: Neuro: B UE sensation is WNL to light touch ROM: R shoulder flex= 180, abd= 164, ER= 56, IR= minimally limited; L shoulder flex= 71, abd= 84, ER= 25, IR= severely limited MMT: R shoulder flex= 31, abd= 40, ER= 33, IR= 40 #F Balance/Special Test Scores Quick DASH Score: 68.1800 Goals Goal 1:: Decrease L shoulder pain x 50% to aid with IADL's Goal Time Frame: 4-6 Weeks Goal 2:: Increase L shoulder strength x 10 #F to aid with return to work Goal Time Frame: 4-6 Weeks Goal 3:: Increase L shoulder flex and abd ROM x 30 degrees to aid with overhead activity Goal Time Frame: 4-6 Weeks Goal 4:: I with HEP Goal Time Frame: 4-6 Weeks Rehabilitation Potential Physical Therapy Diagnosis: Pt has L shoulder pain, weakness, and limited ROM secondary to L shoulder rotator cuff repair Rehabilitation Potential: Good Anticipated Interventions Patient/Client Instruction: Educate patient on: Condition and Plan of Care For the Purpose of:: To improve self management Therapeutic Exercise to Include: Strength training, Endurance training, Passive ROM, Active ROM and Scapular Strength/Stabilization For the Purpose of:: To decrease pain, To increase ROM and To improve muscle performance and motor function Cryotherapy (ice pack, ice massage): Yes For the Purpose of:: To decrease pain Text: Thank you for the opportunity to evaluate your patient. For Medicare and Medicare HMO plans, please review the plan of care and approve it. It will need to be FAXED BACK to us at [phone] for Medicare purposes. For Medicare only, by signing this I certify the plan of care. Please let me know if there are questions or concerns regarding this plan of care. Physician Signature: Date:
== END 2023-03-21 19:00 | disposition home or self-care (01) ==
LOC: PT 15:30
PROVIDERS: PCP Internal Medicine; Referring Provider Orthopaedic Surgery Sports Medicine; Visit Provider Orthopaedic Surgery Sports Medicine
DX: M75.102 Unspecified rotator cuff tear or rupture of left shoulder, not specified as traumatic (principal)
CPT/HCPCS: 97110; 97140; 97161; 97164; 97530

== ENCOUNTER → 2023-03-24 | Outpatient (CLI) | payer BC, SELFPAY ==
--- NOTE | 2023-03-24 13:18 | MRI_ITS ---
STUDY: MRI LEFT SHOULDER REASON FOR EXAM: Male, 67 years old. Persistent weakness 3 months after rotator cuff repair. TECHNIQUE: Standardized fat and water weighted pulse sequences were obtained in all 3 orthogonal planes. COMPARISON: Shoulder x-rays dated August 01, 2022. FINDINGS: Supraspinatus and infraspinatus tendinosis with marked thinning/attenuation. Postsurgical changes of rotator cuff repair with metallic artifact in the humeral head laterally. No partial thickness or full thickness tear of the supraspinatus or infraspinatus tendons is identified (coronal series 5 images 7-15). Subscapularis tendinosis with a longitudinal intrasubstance partial tear of the distal fibers with medial subluxation of the long head of the biceps ( hidden lesion ) (axial series 2 images 10-17). Normal teres minor tendon. Mild supraspinatus and infraspinatus muscle atrophy (sagittal series 6 images 1-7) . Normal subscapularis muscle. Normal teres minor muscle. Moderate thinning of the articular cartilage of the glenohumeral joint with a small glenohumeral joint effusion (axial series 2 images 10-18). Postsurgical changes of rotator cuff repair in the humeral head with metallic artifact and minimal cystic changes (axial series 2 images 8-15). Normal biceps labral complex. Medial subluxation of the long head of the biceps as described above. Normal labrum. Normal capsulo- ligamentous complex. Normal rotator interval. AC joint effusion. AC joint hypertrophy with narrowing of the subacromial space (coronal series 5 images 4-11). There is a Type II morphology (curved), with a neutral orientation. There is no subacromial-subdeltoid bursal fluid. Normal visualized coracohumeral and coracoacromial ligaments. Normal quadrilateral space. Normal axillary space. Normal deltoid muscle. Normal trapezius muscle. MRI/Upper Ext Joint Only(Routine) IMPRESSION: Supraspinatus and infraspinatus tendinosis with marked thinning/attenuation with postsurgical changes of rotator cuff repair. No partial-thickness or full-thickness tear. Subscapularis tendinosis with a distal longitudinal intrasubstance partial tear with medial subluxation of the long head of the biceps ( lesion ). Mild supraspinatus and infraspinatus muscle atrophy. Moderate arthrosis of the glenohumeral joint. AC joint effusion. AC joint hypertrophy with narrowing of the subacromial space. Small glenohumeral joint effusion. Electronically Signed: Anton Kim MD at 10:47 EST ,
--- NOTE | 2023-03-24 13:18 | MRI_ITS ---
EXAM: MR CERVICAL SPINE WITHOUT INTRAVENOUS CONTRAST CLINICAL INDICATION: C5 radiculopathy and deltoid weakness, hx of lt shoulder rtc sx TECHNIQUE: Multiplanar and multisequence MR images of the cervical spine without intravenous contrast were performed. COMPARISON: No relevant prior studies available. FINDINGS: VERTEBRAE: Unremarkable. Normal vertebral bodies and posterior elements. Normal alignment. Normal craniocervical junction and cervicothoracic junction. No spondylolisthesis. There is preservation of the normal cervical lordosis. SPINAL CORD: Unremarkable in signal and morphology. SOFT TISSUES: Unremarkable. No prevertebral soft tissue swelling. LYMPH NODES: Unremarkable. There is no cervical adenopathy. DISCS/SPINAL CANAL/NEURAL FORAMINA: C2-3: Normal disc height and morphology. Normal central canal. Severe foraminal stenosis due to uncinate and facet hypertrophy. C3-4: Edematous endplate changes at C3. Mild spondylotic bar causes minimal cord flattening and borderline canal stenosis. Severe foraminal stenosis due to uncinate hypertrophy. C4-5: Mild spondylotic bar causes minimal cord flattening and borderline canal stenosis. Severe foraminal stenosis due to uncinate hypertrophy. C5-6: Mild disc space narrowing. Mild spondylotic bar causes borderline canal stenosis. Severe foraminal stenosis due to uncinate hypertrophy. C6-7: Mild disc space narrowing. Mild, noncompressive spondylotic bar. No canal stenosis. Severe foraminal stenosis due to uncinate hypertrophy. C7-T1: Normal disc height and morphology. Normal central canal. Mild foraminal encroachment due to uncinate hypertrophy. MRI/Spine Cervical (Routine) IMPRESSION: Minimal cord flattening and borderline canal stenosis at C3-4 and C4-5 due to spondylosis. Severe foraminal stenosis from C2-3 through C5-6. Electronically Signed: Carlee Daley MD at 22:45 EST Reading Location ID and State: [id number] / Tel , Service support ,
== END | disposition home or self-care (01) ==
LOC: MRI 13:16
PROVIDERS: PCP Internal Medicine; Referring Provider Orthopaedic Surgery Sports Medicine; Visit Provider Orthopaedic Surgery Sports Medicine
DX: M67.919 Unspecified disorder of synovium and tendon, unspecified shoulder (principal); M54.12 Radiculopathy, cervical region
CPT/HCPCS: 72141; 73221

== ENCOUNTER → 2023-05-31 | Outpatient (CLI) | payer BC, SELFPAY ==
[2023-05-31 18:21] LABS: Free T3 2.8 pg/mL (2.18-3.98); T4 Free Direct 0.96 ng/dL (0.76-1.46); Thyroid Stim Hormone (TSH) 7.84 uIU/mL (0.358-3.74)
== END | disposition home or self-care (01) ==
LOC: LAB 17:27
PROVIDERS: PCP Internal Medicine; Referring Provider Internal Medicine; Visit Provider Internal Medicine
DX: E03.9 Hypothyroidism, unspecified (principal)
CPT/HCPCS: 36415; 84439; 84443; 84481

== ENCOUNTER → 2024-01-15 | Outpatient (CLI) | payer BC, SELFPAY ==
[2024-01-15 13:37] LABS: Free T3 2.5 pg/mL (2.18-3.98); T4 Free Direct 0.82 ng/dL (0.76-1.46)
== END | disposition home or self-care (01) ==
PROVIDERS: PCP Internal Medicine; Referring Provider Internal Medicine; Visit Provider Internal Medicine
DX: E03.9 Hypothyroidism, unspecified (principal)
CPT/HCPCS: 36415; 84439; 84443; 84481

== ENCOUNTER → 2024-03-15 | Outpatient (CLI) | payer BC, SELFPAY ==
--- NOTE | 2024-03-15 11:08 | MRI_ITS ---
STUDY: MRI LEFT KNEE REASON FOR EXAM: Male, 68 years old. Left medial knee pain, rule out meniscus tear. TECHNIQUE: Standardized fat and water weighted pulse sequences were obtained in all 3 orthogonal planes. COMPARISON: Left knee radiographs dated 02/06/2024. FINDINGS: There is a horizontal tear of the posterior horn of the medial meniscus (sagittal PD series 5 images 11-16). There is degenerative arthrosis of the medial femorotibial compartment with joint space narrowing, marginal osteophyte formation, moderate grade chondromalacia, and subchondral marrow edema both sides of the joint. Normal medial collateral ligamentous complex (MCL). Normal distal semimembranosus, gracilis and semitendinosus tendons. Normal lateral meniscus. Normal hyaline cartilage of the lateral femorotibial compartment. Normal lateral femoral condyle and tibial plateau. Normal proximal tibiofibular articulation. Normal lateral collateral (fibular) ligament. Normal popliteus tendon. Normal biceps femoris tendon. Normal anterior cruciate ligament (ACL). Normal posterior cruciate ligament (PCL). There is low-grade chondromalacia patellae. Congruent patellofemoral articulation. Normal medial and lateral patellar retinaculum. Normal quadriceps tendon. Normal patellar tendon. Normal Hoffa''s fat pad. There is a small joint effusion. There is minimal subcutaneous soft tissue edema along the anterior aspect of the knee. There is no acute fracture. MRI/Lower Ext Joint Only (Routine) IMPRESSION: Horizontal tear of the posterior horn of the medial meniscus. 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 Small joint effusion. Electronically Signed: Steve Gudino MD at 14:54 EST ,
== END | disposition home or self-care (01) ==
LOC: MRI 11:01
PROVIDERS: PCP Internal Medicine; Referring Provider Orthopaedic Surgery Sports Medicine; Visit Provider Orthopaedic Surgery Sports Medicine
DX: S86.912A Strain of unspecified muscle(s) and tendon(s) at lower leg level, left leg, initial encounter (principal); M25.462 Effusion, left knee; M25.562 Pain in left knee; X58.XXXA Exposure to other specified factors, initial encounter
CPT/HCPCS: 73721

== ENCOUNTER → 2024-05-24 | Outpatient (CLI) | payer BC, SELFPAY ==
[2024-05-24 16:31] LABS: Absolute Lymphocyte Count 2.35 X10^3/uL (0.83-4.51); Absolute Neutrophil Count 3.6 X10^3/uL (2.0-7.7); Basophil# 0.09 X10^3/uL; Basophil% 1.3 % (0-1); Eosinophil# 0.25 X10^3/uL; Eosinophils% 3.6 % (0-5); Hemoglobin 14.5 g/dL (13.0-16.5); Lymphocyte # 2.35 X10^3/ul (0.83-4.51); Lymphocyte % 33.9 % (19-41); Mean Corp Hgb Conc 33.7 g/dL (32-36); Mean Corpuscular Hgb 30.7 pg (27.0-32.0); Mean Corpuscular Volume 90.9 fL (80-94); Mean Platelet Vol. 8.9 fl (6.2-12.0); Monocyte% 8.7 % (0-10); NRBC Flagged by Analyzer 0 % (0-5); Neutrophil # 3.62 X10^3/uL (2.7-7.7); Neutrophil % 52.2 % (47-70); Platelet Count 311 K/mm3 (150-450); RBC Distribution Width CV 13.1 % (11.6-14.6); Red Blood Count 4.73 M/mm3 (4.6-6.2); White Blood Count 6.9 K/mm3 (4.4-11.0)
[2024-05-24 19:53] LABS: ALB/GLOB Ratio 1.5 RATIO (0.9-2.4); AST(SGOT) 27 U/L (<=37); Alanine Aminotransfer ALT/SGPT 26 U/L (<=46); Albumin, Serum 4.3 g/dL (3.4-4.8); Alkaline Phosphatase 81 U/L (40-129); Anion Gap 10 (5-15); BUN 14 mg/dL (4-19); BUN/Creat Ratio 14.3 RATIO (10-20); Calcium 8.9 mg/dL (7.6-11.0); Carbon Dioxide 25.1 mmol/L (22.0-29.0); Chloride 104 mmol/L (96-108); Creatinine, Serum 1.01 mg/dL (0.70-1.20); EST Glomerular Filtration Rate 82 (>60); Free T3 2.9 pg/mL (2.18-3.98); Globulin 2.8 g/dL (2.2-4.2); Glucose 79 mg/dL (70-99); Magnesium 2.3 mg/dL (1.5-2.2); Potassium 4.3 mmol/L (3.3-5.1); Protein, Total 7.1 g/dL (5.9-8.4); Sodium Level 139 mmol/L (133-145); Total Bilirubin 0.91 mg/dL (0.00-1.30)
[2024-05-24 22:32] LABS: Cholesterol 184 mg/dL (<=200); High Density Lipoprotein 65 mg/dL; Low Density Lipoprotein Calc. 97 mg/dL; Triglycerides 113 mg/dL; Very Low Density Lipoprotein 23 mg/dL (5-40); cholesterol:hdl ratio screen 2.84
== END | disposition home or self-care (01) ==
LOC: LAB 16:11
PROVIDERS: PCP Internal Medicine; Referring Provider Internal Medicine; Visit Provider Internal Medicine
DX: Z12.5 Encounter for screening for malignant neoplasm of prostate (principal); E03.9 Hypothyroidism, unspecified; R79.89 Other specified abnormal findings of blood chemistry; Z13.220 Encounter for screening for lipoid disorders
CPT/HCPCS: 36415; 80053; 80061; 83735; 84153; 84439; 84443; 84481; 85025; G0103